=== PATIENT | female | born 1950 | race Caucasian/White ===

== ENCOUNTER → 2018-01-26 | Outpatient (CLI) | payer MEDICARE, OTHER ==
[~2018-01-26] MED LIST: ALEN70 PO; CYAN1000 PO; FISH1000 PO; LEVSOD100 PO; LISHYD2025 PO; MULVITMIND PO; OXYACE5T PO; VITAMIN D-3 PO; [UNRECOGNIZED DRUG - OTHER] PO
== END | disposition home or self-care (01) ==
LOC: LAB SHORT 10:24 → LAB 10:24
PROVIDERS: Nurse Practitioner Obstetrics & Gynecology
DX: Z01.419 Encounter for gynecological examination (general) (routine) without abnormal findings (principal)
CPT/HCPCS: 87624; G0123

== ENCOUNTER → 2018-04-25 | Outpatient (CLI) | payer MEDICARE, OTHER | END | disposition home or self-care (01) | LOC: LAB SHORT 09:25 → LAB EV 09:25 | DX: T14.8XXA Other injury of unspecified body region, initial encounter (principal) | CPT/HCPCS: 87070; 87075; 87205 ==

== ENCOUNTER → 2019-02-01 | Outpatient (CLI) | payer MEDICARE, OTHER ==
[2019-02-03 15:06] LABS: HPV 16 Negative (Negative); HPV 18 Negative (Negative); HPV OTHER HR TYPES Negative (Negative)
== END | disposition home or self-care (01) ==
LOC: LAB SHORT 10:14 → LAB 10:14
PROVIDERS: Nurse Practitioner Obstetrics & Gynecology
DX: R87.810 Cervical high risk human papillomavirus (HPV) DNA test positive (principal); Z91.89 Other specified personal risk factors, not elsewhere classified
CPT/HCPCS: 87624; G0123

== ENCOUNTER 2020-07-17 15:54 | Inpatient (IN) | payer MEDICARE, OTHER ==
[~2020-07-17] VITALS: Ht 167.6 cm; Wt 77.1 kg
[~2020-07-17 15:54] MED LIST changes: +CENTRUM SILVER1 EAC2 PO; +FISH OIL PO; +GLUC500 PO; +LEVSOD112 PO; +POTA8 PO; +VITAMIN D310 MC4 PO
[2020-07-21 04:48] LABS: BASOPHILS ABSOLUTE AUTO 0.04 K/mm3 (0.00-0.23); BASOPHILS PERCENT AUTO 0 % (0-2); EOSINOPHILS ABSOLUTE AUTO 0.01 K/mm3 (0.00-0.68); EOSINOPHILS PERCENT AUTO 0 % (0-6); Hematocrit 36.1 % (33.0-51.0); Hemoglobin 11.4 g/dL (11.5-16.0); IMMATURE GRAN ABSOLUTE AUTO 0.04 K/mm3 (0.00-0.10); IMMATURE GRAN PERCENT AUTO 0 % (0-1); LYMPHOCYTES PERCENT AUTO 9 % (21-46); MONOCYTES ABSOLUTE AUTO 0.86 K/mm3 (0.16-1.47); MONOCYTES PERCENT AUTO 6 % (4-13); Mean Corpuscular HGB 32.7 pg (26.0-34.0); Mean Corpuscular HGB Conc 31.6 g/dL (31.5-36.5); Mean Corpuscular Volume 103 fL (80-100); Mean Platelet Volume 10.3 fL (9.1-12.4); NEUTROPHILS ABSOLUTE AUTO 12.13 K/mm3 (1.96-9.15); NEUTROPHILS PERCENT AUTO 84 % (41-73); Platelet Count 199 K/mm3 (150-400); RDW Standard Deviation 53.3 fL (35.1-46.3); Red Blood Cell Count 3.49 M/mm3 (3.80-5.20); White Blood Cell Count 14.38 K/mm3 (4.00-11.30)
[2020-07-21 05:16] LABS: Anion Gap 6 mmol/L (6-16); Blood Urea Nitrogen 23 mg/dL (8-24); Bun/Creatinine Ratio 30.8 (12.0-20.0); CO2, Blood 25 mmol/L (21-32); Calcium, Blood 8.4 mg/dL (8.5-10.1); Chloride, Blood 107 mmol/L (98-108); Creatinine, Blood 0.75 mg/dL (0.40-1.00); Glomerular Filtration Rate >60 (60-); Glucose, Blood 139 mg/dL (70-99); Magnesium, Blood 1.9 mg/dL (1.6-2.4); Potassium, Blood 4.2 mmol/L (3.5-5.5); Sodium, Blood 138 mmol/L (136-145)
[2020-07-21] MEDS ORDERED: ACET500 PO (11:15)
[2020-07-21] MEDS ORDERED: ROXICODONE5 MG PO (11:16)
== END 2020-07-21 12:34 | disposition home or self-care (01) | DRG 483 ==
LOC: SURS 07-20 06:04 → PRE IP 07-20 07:30 → SURS 07-20 12:18
PROVIDERS: ADMIT Orthopaedic Surgery
PROC: 0RRK0JZ Replacement of Left Shoulder Joint with Synthetic Substitute, Open Approach (ICD-10-PCS; principal; 2020-07-20 07:30)
DX: M19.012 Primary osteoarthritis, left shoulder (principal); E03.9 Hypothyroidism, unspecified
CPT/HCPCS: 36415; 73030; 80048; 83735; 85025; 97110; 97116; 97162; 97530; 97535; A9270; C1776; J0171; J0690; J0735; J1885; J2795; J7120

== ENCOUNTER 2020-08-30 08:45 | Day surgery (SDC) | payer MEDICARE, OTHER ==
[~2020-08-30] VITALS: Ht 167.6 cm; Wt 75.0 kg
[~2020-08-30 08:45] MED LIST changes: +ACET500 PO; +ROXICODONE5 MG PO
== END 2020-08-30 11:03 | disposition home or self-care (01) ==
LOC: ORSCSDS 08:45
PROVIDERS: Surgery
PROC: 0DJD8ZZ Inspection of Lower Intestinal Tract, Via Natural or Artificial Opening Endoscopic (ICD-10-PCS; principal; 2020-08-30 10:00)
DX: Z12.11 Encounter for screening for malignant neoplasm of colon (principal); K57.30 Diverticulosis of large intestine without perforation or abscess without bleeding; E03.9 Hypothyroidism, unspecified; I10 Essential (primary) hypertension; Z79.899 Other long term (current) drug therapy
CPT/HCPCS: J2704; J7120

== ENCOUNTER 2022-02-15 07:55 | Day surgery (SDC) | payer MEDICARE ==
[~2022-02-15] VITALS: Ht 167.6 cm; Wt 74.2 kg
--- NOTE | 2022-02-15 09:07 | NUR ---
02/15/22 0907 ANA SNOW PT READY FOR OR - RAPID COVID TEST IN PROGRESS
--- NOTE | 2022-02-15 10:26 | NUR ---
02/15/22 1026 Felisa Carmen BUPIVACAINE 0.5% 50 MLS WAS MIXED & VERIFIED AT THE BEGINNING OF DAY WITH EPI 0.25 ML PER ORDER TO MAKE BUPIVCAINE 0.5% 1:200,000 FOR INJECTION AT [facility]. MULTI DOSE VIAL. 20 MLS OF THIS INJECTED AT [facility] BY DR ARAGON.
--- NOTE | 2022-02-15 12:06 | NUR ---
02/15/22 1206 SAM BARROSO PAIN NOW 01/29 WILL GIVE 2ND DOSE OF 25MCG OF FENTANYL= 50MCG
--- NOTE | 2022-02-15 12:34 | NUR ---
02/15/22 1234 SAM BARROSO PAIN 11/29 APPROX AT [id number]
== END 2022-02-15 13:24 | disposition home or self-care (01) ==
LOC: ORSCSDS 07:55
PROVIDERS: Podiatrist Foot & Ankle Surgery
PROC: 0SGK04Z Fusion of Right Tarsometatarsal Joint with Internal Fixation Device, Open Approach (ICD-10-PCS; principal; 2022-02-15 09:15)
DX: M19.071 Primary osteoarthritis, right ankle and foot (principal); E03.9 Hypothyroidism, unspecified; K21.9 Gastro-esophageal reflux disease without esophagitis; Z79.899 Other long term (current) drug therapy
CPT/HCPCS: A9270; C1713; C1734; J0690; J1100; J1885; J2405; J2704; J3010

== ENCOUNTER → 2022-07-05 | Outpatient (CLI) | payer MEDICARE | END | disposition home or self-care (01) | LOC: PLD 13:23 → LAB SHORT 13:23 | DX: L82.1 Other seborrheic keratosis (principal) | CPT/HCPCS: 88305 ==

== ENCOUNTER 2022-10-18 10:00 | Day surgery (SDC) | payer MEDICARE ==
[~2022-10-18] VITALS: Ht 167.6 cm; Wt 77.1 kg
[2022-10-18] MEDS ORDERED: LOSA25 PO (10:42)
--- NOTE | 2022-10-18 11:32 | NUR ---
10/18/22 1132 HELENE INMAN 0.15MG OF EPI ADDED TO 30MLS OF ROPIVACAINE 0.5% TO CREATE A LOCAL SOLUTION OF ROPIVACAINE 0.5% WITH EPI 1:200,000. LOCAL POURED ONTO STERILE FIELD FOR USE DURING CASE.
--- NOTE | 2022-10-18 13:42 | NUR ---
10/18/22 1342 Ivy Cantu PT IN RECLINER DRINKING CRANBERRY JUICE. DENIES NAUSEA.
== END 2022-10-18 14:00 | disposition home or self-care (01) ==
LOC: ORSCSDS 10:00
PROVIDERS: Podiatrist Foot & Ankle Surgery
PROC: 0SGL04Z Fusion of Left Tarsometatarsal Joint with Internal Fixation Device, Open Approach (ICD-10-PCS; principal; 2022-10-18 11:15)
DX: M19.072 Primary osteoarthritis, left ankle and foot (principal); M79.672 Pain in left foot; I10 Essential (primary) hypertension; Z79.899 Other long term (current) drug therapy
CPT/HCPCS: A9270; C1713; J0171; J0690; J1100; J2250; J2405; J2704; J2765; J2795; J3010; J7120

== ENCOUNTER 2023-10-01 08:33 | Day surgery (SDC) | payer MEDICARE ==
[2023-10-01] VITALS (17 sets, daily range): BP systolic 117–173; BP diastolic 76–104
[~2023-10-01] VITALS: Ht 167.6 cm; Wt 76.4 kg
[~2023-10-01 08:33] MED LIST changes: +ATOR10; +Folic Acid-Vit1 EACH PO; +LOSA25 PO; +MAGNESIUM OXID500 MG PO; +POTASSIUM99 M3 PO; +ZINC15 PO
--- NOTE | 2023-10-01 09:34 | NUR ---
Ambulatory in Day Surgery History, Chart, Medications and Allergies reviewed before start of procedure. Pre-Op teaching done. Pt verbalizes understanding.
--- NOTE | 2023-10-01 14:25 | NUR ---
ARRIVAL TO SURGICAL UNIT ALERT & PLEASANT. ASSESSMENT CHARTED. HAD SPINAL & CAN WIGGLE TOES BUT NOT PUMP ANKLES. DENIES N/V. SNACKS & WATER GIVEN.
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
--- NOTE | 2023-10-01 19:56 | NUR ---
SHIFT SUMMARY PT HAS DONE WELL POST OP DESPITE SPINAL NOT WEARING OFF UNTIL LATE TONIGHT. PAIN WELL MANAGED. PLEASANT & COOPERATIVE. HAD TO USE BEDPAN DUE TO NOT BEING ABLE TO LIFT LEG BUT WAS ABLE TO VOID. EATING, DRINKING, & VOIDING.
[2023-10-02 03:40] VITALS: BP 153/84
--- NOTE | 2023-10-02 04:20 | NUR ---
SHIFT SUMMARY POD 1 R TKA PT ABLE TO REST T/O NIGHT. PAIN MANAGED PER EMAR. UP TO THE BATHROOM, VOIDING. TOLERTAING PO INTAKE. ALL ABX RAN. DENIES ANY N/T IN EXT'S. VSS. NO OTHER CONCERNS AT THIS TIME. CALL LIGHT WITHIN REACH.
[2023-10-02 04:48] LABS: BASOPHILS ABSOLUTE AUTO 0.02 K/mm3 (0.00-0.23); BASOPHILS PERCENT AUTO 0 % (0-2); EOSINOPHILS PERCENT AUTO 0 % (0-6); Hematocrit 35.6 % (33.0-51.0); Hemoglobin 11.9 g/dL (11.5-16.0); IMMATURE GRAN ABSOLUTE AUTO 0.07 K/mm3 (0.00-0.10); IMMATURE GRAN PERCENT AUTO 1 % (0-1); LYMPHOCYTES ABSOLUTE AUTO 0.93 K/mm3 (0.84-5.20); LYMPHOCYTES PERCENT AUTO 7 % (21-46); MONOCYTES ABSOLUTE AUTO 0.61 K/mm3 (0.16-1.47); MONOCYTES PERCENT AUTO 4 % (4-13); Mean Corpuscular HGB 33.1 pg (26.0-34.0); Mean Corpuscular HGB Conc 33.4 g/dL (31.5-36.5); Mean Corpuscular Volume 99 fL (80-100); NEUTROPHILS ABSOLUTE AUTO 12.38 K/mm3 (1.96-9.15); NEUTROPHILS PERCENT AUTO 88 % (41-73); Platelet Count 171 K/mm3 (150-400); RDW Coefficient Variation 12.5 % (11.7-14.2); RDW Standard Deviation 45.1 fL (35.1-46.3); White Blood Cell Count 14.01 K/mm3 (4.00-11.30)
[2023-10-02 05:12] LABS: Bun/Creatinine Ratio 25.2 (12.0-20.0); Creatinine, Blood 0.6 mg/dL (0.40-1.00); Magnesium, Blood 1.8 mg/dL (1.6-2.4); Potassium, Blood 4.2 mmol/L (3.5-5.5)
[2023-10-02 07:12] VITALS: BP 139/74
[2023-10-02] MEDS ORDERED: ASPI81CH PO (09:34)
[2023-10-02] MEDS ORDERED: OXYC5 PO (09:36)
[2023-10-02] MEDS ORDERED: SULTRIDS PO (09:37)
--- NOTE | 2023-10-02 10:11 | NUR ---
DISCHARGE PT HAS CLEARED THERAPY. PAIN WELL CONTROLLED. EATING, DRINKING, & VOIDING WELL. MARY SUPPLIES & POLAR PACK SENT w/ PT. ESCORTED OUT VIA W/C.
--- NOTE | 2023-10-02 15:10 | NUR ---
10/02/23 1510 Mamie Bernabe VERIFICATIONS: EDIT CHART.
== END 2023-10-02 10:06 | disposition home or self-care (01) ==
LOC: ORSCMMR 08:33 → ORD 10:45 → SURS 14:09 → ORSCMMR 10-02 10:06
PROVIDERS: Orthopaedic Surgery
PROC: 0QP104Z Removal of Internal Fixation Device from Sacrum, Open Approach (ICD-10-PCS; principal; 2023-10-01 10:45)
PROC: 0SRC0JA Replacement of Right Knee Joint with Synthetic Substitute, Uncemented, Open Approach (ICD-10-PCS; principal; 2023-10-01 10:45)
DX: M17.31 Unilateral post-traumatic osteoarthritis, right knee (principal); Z47.2 Encounter for removal of internal fixation device; Z96.612 Presence of left artificial shoulder joint; E03.9 Hypothyroidism, unspecified; Z79.899 Other long term (current) drug therapy
CPT/HCPCS: 36415; 73560-RT; 80048; 83735; 85025; 97110; 97116; 97162; 97530; A9270; C1713; C1776; J0171; J0690; J0735; J1100; J1885; J2250; J2371; J2405; J2704; J2795; J3010; J3370; J7120

== ENCOUNTER → 2024-12-30 | Outpatient (CLI) | payer MEDICARE ==
[~2024-12-30] MED LIST changes: +ASPI81CH PO; +OXYC5 PO; +SULTRIDS PO
[2024-12-30 17:49] LABS: Body Fluid Crystals NEG (NEGATIVE)
[2024-12-30 18:23] LABS: WBC Count, Synovial Fluid 8 /mm3 (0-180)
[2024-12-30 18:36] LABS: Appearance, Synovial Fluid SL Hazy (Clear); Color, Synovial Fluid Pale Yellow (None-P Yel); RBC Count, Synovial Fluid 73 /mm3 (0-0)
[2024-12-30 18:57] LABS: Lymphs, Synovial Fluid 49 % (0-15); Monocytes/Macrophages, Synovia 33 % (0-65); Neutrophils, Synovial Fluid 18 % (0-24)
== END ==
LOC: LAB SHORT 15:44 → LAB 15:44
PROVIDERS: Family Medicine
DX: M25.562 Pain in left knee (principal)
CPT/HCPCS: 89051; 89060